=== PATIENT | male | born 1960 | race Caucasian/White ===

== ENCOUNTER 2020-10-17 13:15 | Outpatient (CLI) | payer BC ==
[~2020-10-17 13:15] MED LIST: Iopamidol-370 76% 500 ML 1 ML ONE
== END 2020-10-17 13:16 | disposition home or self-care (01) ==
LOC: BICCT 13:15
PROVIDERS: ATTEND Student in an Organized Health Care Education/Training Program
DX: Z12.2 Encounter for screening for malignant neoplasm of respiratory organs (principal); C02.9 Malignant neoplasm of tongue, unspecified; R93.0 Abnormal findings on diagnostic imaging of skull and head, not elsewhere classified
CPT/HCPCS: 70491; 71271; Q9967

== ENCOUNTER 2020-11-04 08:59 | Observation (INO) | payer BC ==
[2020-11-03 09:35] VITALS: BMI 30.1
[2020-11-04] MEDS ORDERED: Fentanyl 100 MCG/2 ML VIAL ONE ×5 (09:50→17:00)
[2020-11-04] MEDS ORDERED: HYDROmorphone 0.5 MG/0.5 ML SYRINGE ONE (09:50)
[2020-11-04] MEDS ORDERED: Midazolam HCl 2 mg/2 ml Vial ONE (09:50)
[2020-11-04] MEDS ORDERED: Lidocaine 1% w/Epinephrine 1:100K 20 ML VIAL ONE (09:53)
[2020-11-04] MEDS ORDERED: Lidocaine 1% PF 5 ML VIAL ONE (12:16)
[2020-11-04] MEDS ORDERED: ePHEDrine Sulfate 50 MG/10 ML VIAL ONE (12:16)
[2020-11-04] MEDS ORDERED: PROPOFOL 200 MG/20 ML VIAL ONE (12:16)
[2020-11-04] MEDS ORDERED: Glycopyrrolate 0.2 MG/ML 5 ML SYRINGE ONE (12:16)
[2020-11-04] MEDS ORDERED: PHENYLEPHRINE-NS 100 MCG/ML 10 ML SYRINGE ONE (12:16)
[2020-11-04] MEDS ORDERED: Ondansetron PF 4 MG/2 ML Vial ONE (12:16)
[2020-11-04] MEDS ORDERED: Dexamethasone 20 MG/5 ML VIAL ONE (12:16)
[2020-11-04] MEDS ORDERED: Rocuronium Bromide 10 MG/ML (10ML VIAL) ONE (12:16)
[2020-11-04] MEDS ORDERED: Succinylcholine 200 MG/10 ml SYRINGE FS ONE (12:16)
[2020-11-04] MEDS ORDERED: Bacitracin Zinc Ointment 30 gm TUBE ONE (14:47)
[2020-11-04] MEDS ORDERED: Chlorhexidine Gluconate 15 ML UDCUP SSP ONE (14:55)
[2020-11-04] MEDS ORDERED: Labetalol HCl 100 MG/20 ML VIAL ONE (16:15)
[2020-11-04] MEDS ORDERED: PACU-Morphine 4MG/ML VIAL SLOW IVP PRN (16:24)
[2020-11-04] MEDS ORDERED: Meperidine HCl/PF 25 MG/ML VIAL SLOW IVP PRN (16:24)
[2020-11-04] MEDS ORDERED: hydrALAZINE 20 MG/ML VIAL ONE (16:24)
[2020-11-04] MEDS ORDERED: Promethazine HCl 25 MG/ML VIAL IM PRN (16:24)
[2020-11-04] MEDS ORDERED: Promethazine HCl 25 MG/ML VIAL SLOW IVP PRN (16:24)
[2020-11-04] MEDS ORDERED: Labetalol HCl 100 MG/20 ML VIAL SLOW IVP PRN (16:25)
[2020-11-04] MEDS ORDERED: hydrALAZINE 20 MG/ML VIAL SLOW IVP SCH (16:30)
[2020-11-04] MEDS ORDERED: Aluminum & Magnesium Hydroxide 60 ML, Lidocaine 2% Viscous Solution 30 ML, diphenhydrAM... SSP PRN (16:35)
[2020-11-04] MEDS: Lactated Ringer's 1,000 ML IV SCH ×2 (16:40→21:46)
[2020-11-04] MEDS: HYDROcodone/Acetaminophen 5/325 mg Tablet PO PRN (18:06)
[2020-11-04] MEDS: Docusate 100 MG CAP PO SCH (21:39)
[2020-11-04] MEDS: Chlorhexidine Gluconate 15 ML UDCUP SSP SCH (21:39)
[2020-11-04] MEDS: Metoprolol Tartrate 50 MG TAB PO SCH (21:40)
[2020-11-04] MEDS: Morphine 2 MG/ML VIAL SLOW IVP PRN (22:23)
[2020-11-05] MEDS: Morphine 2 MG/ML VIAL SLOW IVP PRN ×3 (03:58→20:36)
[2020-11-05] MEDS: Chlorhexidine Gluconate 15 ML UDCUP SSP SCH ×3 (06:25→21:53)
[2020-11-05] MEDS: HYDROcodone/Acetaminophen 5/325 mg Tablet PO PRN (09:03)
[2020-11-05] MEDS: Docusate 100 MG CAP PO SCH ×2 (09:05→20:37)
[2020-11-05] MEDS: Metoprolol Tartrate 50 MG TAB PO SCH ×2 (09:05→20:37)
[2020-11-05] MEDS ORDERED: Prevnar 13-Val Conj/PF 0.5 ML SYRINGE IM ONE (21:00)
[2020-11-06] MEDS: Morphine 2 MG/ML VIAL SLOW IVP PRN ×2 (02:57→09:41)
[2020-11-06] MEDS: Chlorhexidine Gluconate 15 ML UDCUP SSP SCH (05:06)
[2020-11-06] MEDS: HYDROcodone/Acetaminophen 5/325 mg Tablet PO PRN (08:15)
[2020-11-06] MEDS: Docusate 100 MG CAP PO SCH (08:16)
[2020-11-06] MEDS: Metoprolol Tartrate 50 MG TAB PO SCH (08:16)
[2020-11-06] MEDS ORDERED: Dexamethasone 12 MG in Sodium Chloride 0.9% 50 ML IVPB SCH (09:00)
[2020-11-06 10:49] VITALS: BP 128/74; TEMP 98
[2020-11-06] MEDS: Lactated Ringer's 1,000 ML IV SCH (11:34)
== END 2020-11-06 11:51 | disposition home or self-care (01) ==
LOC: SDC 08:59 → T4-B 16:26
PROVIDERS: ADMIT Student in an Organized Health Care Education/Training Program; ATTEND Student in an Organized Health Care Education/Training Program
PROC: 0CB7XZZ Excision of Tongue, External Approach (ICD-10-PCS; principal; 2020-11-06)
DX: C04.8 Malignant neoplasm of overlapping sites of floor of mouth (principal); K14.0 Glossitis; K14.6 Glossodynia; I10 Essential (primary) hypertension; E78.5 Hyperlipidemia, unspecified; J30.2 Other seasonal allergic rhinitis; M19.90 Unspecified osteoarthritis, unspecified site; F17.210 Nicotine dependence, cigarettes, uncomplicated; Z79.899 Other long term (current) drug therapy
CPT/HCPCS: 88307; 88309; 88331; 88332; 93005; 93010; 96374; 96375; 96376; G0378; J0360; J1100; J1170; J2250; J2270; J2405; J2704; J3010

== ENCOUNTER 2021-01-01 14:10 | Outpatient (CLI) | payer BC | END 2021-01-01 14:11 | disposition home or self-care (01) | LOC: BICCT 14:10 | PROVIDERS: ATTEND Student in an Organized Health Care Education/Training Program | DX: C02.9 Malignant neoplasm of tongue, unspecified (principal); Z98.890 Other specified postprocedural states | CPT/HCPCS: 70491; 82565 ==

== ENCOUNTER 2021-04-10 09:18 | Outpatient (CLI) | payer BC ==
[2021-04-10 09:52] LABS: Estimated GFR-MDRD - POC Greater than 90
[2021-04-10] MEDS ORDERED: Iopamidol-370 76% 500 ML 1 ML ONE (11:20)
== END 2021-04-10 09:19 | disposition home or self-care (01) ==
LOC: BICCT 09:18
PROVIDERS: ATTEND Student in an Organized Health Care Education/Training Program
DX: C02.9 Malignant neoplasm of tongue, unspecified (principal); Z98.890 Other specified postprocedural states
CPT/HCPCS: 70491; 82565; Q9967

== ENCOUNTER 2021-07-27 09:53 | Outpatient (CLI) | payer BC ==
[2021-07-27 10:43] LABS: Estimated GFR-MDRD - POC Greater than 90
== END 2021-07-27 09:54 | disposition home or self-care (01) ==
LOC: CT 09:53
PROVIDERS: ATTEND Student in an Organized Health Care Education/Training Program
DX: C02.9 Malignant neoplasm of tongue, unspecified (principal)
CPT/HCPCS: 70491; 82565

== ENCOUNTER 2022-01-08 12:22 | Outpatient (CLI) | payer BC ==
[~2022-01-08 12:22] MED LIST changes: +Iopamidol 370 76% 100 ML VIAL ONE; -Iopamidol-370 76% 500 ML 1 ML ONE
[2022-01-08 13:01] LABS: Estimated GFR-MDRD - POC Greater than 90
== END 2022-01-08 12:23 | disposition home or self-care (01) ==
LOC: BICCT 12:22
PROVIDERS: ATTEND Student in an Organized Health Care Education/Training Program
DX: C02.9 Malignant neoplasm of tongue, unspecified (principal)
CPT/HCPCS: 70491; 82565; Q9967

== ENCOUNTER 2022-02-24 12:13 | Outpatient (CLI) | payer BC | END 2022-02-24 12:14 | disposition home or self-care (01) | LOC: BICCT 12:13 | PROVIDERS: ATTEND Internal Medicine Hematology & Oncology | DX: Z12.2 Encounter for screening for malignant neoplasm of respiratory organs (principal); F17.210 Nicotine dependence, cigarettes, uncomplicated | CPT/HCPCS: 71271 ==

== ENCOUNTER 2022-04-02 12:11 | Outpatient (CLI) | payer BC | END 2022-04-02 12:12 | disposition home or self-care (01) | LOC: SCSMRI 12:11 | PROVIDERS: ATTEND Neurological Surgery | DX: M47.26 Other spondylosis with radiculopathy, lumbar region (principal) | CPT/HCPCS: 72120; 72148 ==

== ENCOUNTER 2022-07-09 08:31 | Outpatient (CLI) | payer BC ==
[2022-07-09] MEDS ORDERED: Iopamidol 370 76% 100 ML VIAL ONE (12:09)
== END 2022-07-09 08:32 | disposition home or self-care (01) ==
LOC: CT 08:31
PROVIDERS: ATTEND Student in an Organized Health Care Education/Training Program
DX: K14.8 Other diseases of tongue (principal); I65.23 Occlusion and stenosis of bilateral carotid arteries
CPT/HCPCS: 70491; 82565; Q9967

== ENCOUNTER 2023-01-14 08:06 | Outpatient (CLI) | payer BC ==
[2023-01-14] MEDS ORDERED: Iopamidol-370 76% 500 ML MDV (1 ML CHARGE) ONE (08:09)
== END 2023-01-14 08:07 | disposition home or self-care (01) ==
LOC: BICCT 08:06
PROVIDERS: ATTEND Student in an Organized Health Care Education/Training Program
DX: C02.9 Malignant neoplasm of tongue, unspecified (principal); I65.29 Occlusion and stenosis of unspecified carotid artery; Z98.890 Other specified postprocedural states; G93.89 Other specified disorders of brain
CPT/HCPCS: 70491; 82565; Q9967